=== PATIENT | female | born 1960 | race African-American/Black ===

== ENCOUNTER 2016-10-28 08:28 | Day surgery (SDC) | payer OTHER ==
[2016-10-28] VITALS (7 sets, daily range): BP systolic 122–141; BP diastolic 71–97; PULSE 61–90; RESP 18; TEMP 97.8–98.3; O2SAT 97–98
[~2016-10-28] VITALS: Ht 154.9 cm; Wt 109.0 kg
[2016-10-28] MEDS ORDERED: SODIUM CHLORIDE 2 ML FLUSH PRN IV FLUSH (09:00)
[2016-10-28] MEDS ORDERED: SODIUM CHLORIDE 2 ML FLUSH BID IV FLUSH SCH (09:00)
[2016-10-28] MEDS ORDERED: SODIUM CHLOR 0.9% 1000 ML IV SCH (09:00)
[2016-10-28] MEDS ORDERED: LEVO75TA3 PO (09:05)
[2016-10-28] MEDS ORDERED: HYDR12.57 PO (09:05)
[2016-10-28] MEDS ORDERED: OMEP40CA2 PO (09:05)
[2016-10-28] MEDS ORDERED: LOSA100T PO (09:05)
[2016-10-28] MEDS ORDERED: FLUT1INH INH (09:05)
[2016-10-28] MEDS ORDERED: HYDR25TA5 PO (09:05)
[2016-10-28] MEDS ORDERED: fentaNYL CITRATE 250 MCG/5 ML AMP ONE (10:56)
[2016-10-28] MEDS ORDERED: MIDAZOLAM HCL 2 MG/2 ML VIAL ONE (10:59)
[2016-10-28] MEDS ORDERED: LIDOCAINE 1%/EPINEPHrine 1:100,000 SOLN 20 ML VIAL ONE (11:07)
--- NOTE | 2016-10-28 11:50 | PD.RAD ---
Post CT Procedure Prog Note Pre Procedure Diagnosis: (1) Mediastinal mass Post Procedure Diagnosis: (1) Mediastinal mass Procedure Date: Oct 28, 2016 Supervising Radiologist: Erickson Roth Estimated blood loss: minimal Anesthesia: Conscious Sedation Plan of Activity Patient to Unit: [facility] Patient Condition: Good See PACS Report for procedural detail/treatment Biopsy Imaging Guidance: CT Biopsy Procedure: Mediastinal Mass Site: anterior mediastinal mass. suspected thyroid origin. want to evaluate for lymphoma and thyroid cancer. Specimen: Core Biopsy Additional Detail: transsternal biopsy performed. Plan to [facility] for monitoring then discharge home. Erickson Roth MD Oct 28, 2016 11:50
--- NOTE | 2016-10-28 15:00 | RADRPT ---
EXAM DATE/TIME: 10/28/2016 11:20 [facility] COMPARISON: No previous studies available for comparison. Outside MRI and CT were reviewed. INDICATIONS : Substernal/anterior mediastinal mass SEDATION TIME: 20 minutes BIOPSY SITE: Left sub sternal MEDICATION(S): 1.) 2 mg midazolam (Versed) IV 2.) 100 mcg fentanyl (Sublimaze) IV DEVICE(S): 1.) 18 gauge Temno core biopsy needle MEDICAL HISTORY : None. SURGICAL HISTORY : None. ENCOUNTER: Initial ACUITY: 1 day PAIN SCORE: 0/10 LOCATION: Left substernal A total of six core specimen(s) were obtained and sent to the laboratory for pathologic evaluation. PROCEDURE: 1. CT guided substernal biopsy. 2. Conscious sedation with continuous EKG and oximetry monitoring. 3. EKG and oximetry remained stable throughout the procedure. Prior to the procedure informed consent was obtained. The outside CT and MRI were reviewed. Based on the location and the location of the internal mammary arteries, the safest approach was a trans-anthony al approach. Using automated exposure control and adjustment of the mA and/or kV according to patient size, radiat ion dose was kept as low as reasonably achievable to obtain optimal diagnostic quality images. DICOM format image data is available electronically for review and comparison. The site was prepped in a sterile fashion. Full sterile technique was used, including cap, mask, cindy rile gloves and gown and a large sterile sheet. Hand hygiene and 2% chlorhexidine and/or betadine/al cohol prep was utilized per protocol for cutaneous antisepsis. The skin and subcutaneous tissues wer e infiltrated with local anesthetic solution. With CT guidance the superior mediastinal mass was localized. A trans-sternal approach was utilized. Coaxial needle was drilled through the sternum and through this coaxial needle core samples were obta ined. Biopsy was performed using the prescribed needle as above. Adequate hemostasis was obtained wi th compression at the puncture site. Follow-up CT scan reveals no hemorrhage or acute abnormality. The patient tolerated the procedure well and there were no complications. The patient was returned to the Radiology Outpatient Unit in stable condition. CONCLUSION: Uncomplicated CT guided biopsy of the superior mediastinal mass. Erickson Roth MD on October 28, 2016 at 14:57 Board Certified Radiologist. This report was verified electronically.
== END 2016-10-28 15:00 | disposition home or self-care (01) ==
LOC: HRAD 08:28 → HRIP 08:32 → HRAD 15:00
PROVIDERS: ATTEND Surgery
DX: E04.9 Nontoxic goiter, unspecified (principal); R22.2 Localized swelling, mass and lump, trunk
CPT/HCPCS: 32405; 77012; 88307; C1830; J2250; J3010; 88305

== ENCOUNTER 2017-08-01 05:46 | Observation (INO) | payer OTHER ==
[~2017-08-01] VITALS: Ht 154.9 cm; Wt 103.3 kg
[~2017-08-01 05:46] MED LIST: FLUT1INH INH; HYDR12.57 PO; LEVO75TA3 PO; LOSA100T PO; OMEP40CA2 PO
[2017-08-01] MEDS ORDERED: LACTATED RINGER'S 1000 ML IV PRN (06:30)
[2017-08-01] MEDS ORDERED: SODIUM CHLORID 0.9% 500 ML IV PRN (06:30)
[2017-08-01] MEDS ORDERED: POVIDONE IODINE 5% (ANTISEPSIS KIT) 4 APPLICATIONS EACH NARE PRN (06:30)
[2017-08-01] MEDS ORDERED: METOPROLOL TARTRATE 25 MG TAB PO PRN (06:30)
[2017-08-01] MEDS ORDERED: ACETAMINOPHEN 1000 MG/100 ML 100 ML IV SCH (06:30)
[2017-08-01] MEDS ORDERED: CHLORHEXIDINE GLUCONATE 2 % 1 PACK (2 CLOTHS) TOPICAL PRN (06:30)
[2017-08-01] MEDS ORDERED: INSULIN HUMAN REGULAR 1,000 UNITS/10 ML VIAL SQ PRN (06:30)
[2017-08-01] MEDS ORDERED: FAMOTIDINE 20 MG/2 ML VIAL ONE (07:11)
[2017-08-01] MEDS ORDERED: MIDAZOLAM HCL 2 MG/2 ML VIAL ONE (10:13)
--- NOTE | 2017-08-01 10:19 | PD.OP ---
cc: Joe Griffin MD Operative Report Date of Surgery: August 01, 2017 Preoperative Diagnosis: Right thyroid goiter Postoperative Diagnosis: Right thyroid goiter Procedure: Right thyroid lobectomy Anesthesia: General endotracheal Surgeon: Joe Griffin Substation Operator Transforming(s): Gus Mckeon MD Operation and Findings: Operative findings: The patient was found to have an extremely enlarged, substernal goiter involving the entire right lobe of the thyroid. There was a fair amount of edema around the thyroid but no other abnormalities were noted. Operative procedure: Patient was brought to the operating room and after satisfactory general endotracheal anesthesia was obtained, the neck was hyperextended then prepped and draped in the usual sterile fashion. A standard collar incision was made carried down sharply through the subcutaneous tissue with cautery being used for hemostasis. Incision was deepened to the platysma which was then divided with cautery. The incision was further deepened to the fascia of the anterior neck muscles and upper and lower flaps were then developed also with a cautery. Thyroid retractor was then placed in the midline of the neck open with the cautery. Once the right thyroid lobe is been located properly he was seen to be grossly enlarged and quite substernal in this location. Dissection was carried out superiorly first and the superior thyroid vessels were identified isolated and then divided with harmonic scalpel at the level of the thyroid. The remainder of the superior lobe was dissected free superiorly and then rotated medially to take down the posterior attachments with care being taken to preserve the surrounding tissues. The lobe was large enough where the posterior aspect of the lobe rested on the spinal column. Dissection was then undertaken for the middle thyroid vessels. The patient was noted to have extra vessels in this area and dissection was carried out with the vessels being divided at the level of the thyroid. Using Susana clamps the thyroid was rotated medially and then dissection was carried inferiorly and the lobe was gently brought into the operative field by retracting it medially and superiorly. The inferior thyroid vessels were identified and divided at the level of the thyroid. The entire gland was then rotated medially as the attachments were carefully dissected free bluntly. The recurrent nerve was identified by using the nerve monitor and was preserved throughout the entire dissection of the gland. Once it had been dissected off the trachea the very small remaining isthmus was dissected free as well and the specimen was sent for permanent pathology. Hemostasis was checked for and found to be satisfactory with no bleeding or significant bruising. Surgicel powder was used to fill the space where the thyroid had been dissected free.Hemostasis was again checked for and found to be satisfactory. The midline of the neck was then closed with a running 3-0 Vicryl suture. The area was checked for hemostasis and was seen to be satisfactory. The platysma layer and subcutaneous tissue was closed with interrupted 3-0 Vicryl sutures and the skin then closed with a running 4-0 PDS subcuticular stitch. Steri-Strips were applied the patient was then awakened and taken from the operating room, in stable condition, having tolerated the procedure without problem. Estimated blood loss was less than 20 mL's. The instrument, sponge, and needle counts were reported as being correct 2 at the end of the procedure. Joe Griffin MD August 01, 2017 10:19
[2017-08-01] MEDS ORDERED: KETOROLAC TROMETHAMINE 30 MG/ML (IVP) VIAL ONE (10:29)
[2017-08-01] MEDS ORDERED: *RESP: ALBUTEROL 2.5 MG/3 ML NEB (PRN) PERIprocedural Use ONLY NEB ONE (10:47)
[2017-08-01] MEDS ORDERED: oxyCODONE/ACETAMINOPHEN 5 MG/325 MG TAB PO PRN (11:00)
[2017-08-01] MEDS ORDERED: KETOROLAC TROMETHAMINE 30 MG/ML (IVP) VIAL IV PUSH ONE (11:00)
[2017-08-01] MEDS ORDERED: ONDANSETRON HCL 4 MG/2 ML VIAL IV PUSH PRN (11:00)
[2017-08-01] MEDS ORDERED: MORPHINE SULFATE 4 MG/ML INJ IV PUSH PRN ×2 (11:00)
[2017-08-01] MEDS ORDERED: SODIUM CHLORIDE 0.9% FLUSH 10 ML FLUSH IV FLUSH PRN (11:00)
[2017-08-01] MEDS ORDERED: ONDANSETRON ODT 4 MG TAB PO PRN (11:15)
[2017-08-01] MEDS ORDERED: DO NOT ADM ANY ANTICOAGULANT DRUGS PRN (11:15)
[2017-08-01] MEDS ORDERED: LIDOCAINE HCL 1% PF 5 ML SYRINGE OTHER ONE (12:00)
[2017-08-01] MEDS ORDERED: ONDANSETRON HCL 4 MG/2 ML VIAL IV ONE (12:00)
[2017-08-01] MEDS ORDERED: ROCURONIUM INJ 50 MG/5 ML SYRINGE IV PUSH ONE (12:00)
[2017-08-01] MEDS ORDERED: PROPOFOL 200 MG/20 ML AMP IV ONE (12:00)
[2017-08-01] MEDS ORDERED: DEXAMETHASONE SOD PHOS 4 MG/ML VIAL IV ONE (12:00)
[2017-08-01] MEDS ORDERED: PHENYLEPH/NS 1000 MCG/10 ML SYR IV ONE (12:00)
[2017-08-01] MEDS ORDERED: SODIUM CHLORIDE 0.9% 10 ML VIAL IV FLUSH ONE (12:00)
[2017-08-01] MEDS: oxyCODONE/ACETAMINOPHEN 5 MG/325 MG TAB PO PRN ×2 (12:10→20:16)
[2017-08-01 16:00] VITALS: BP 99/66; PULSE 80; RESP 18; TEMP 97.7; O2SAT 93
[2017-08-01 20:00] VITALS: BP 108/67; PULSE 80; RESP 17; TEMP 97.5; O2SAT 95
[2017-08-01] MEDS ORDERED: METOCLOPRAMIDE HCL 10 MG/2 ML VIAL IV PRN (23:00)
[2017-08-02] VITALS: BP 105/59; PULSE 75; RESP 17; TEMP 97.5; O2SAT 95
[2017-08-02 08:00] VITALS: BP 117/63; PULSE 83; RESP 18; TEMP 97.4; O2SAT 94
[2017-08-02 09:13] VITALS: O2SAT 95
[2017-08-02] MEDS: oxyCODONE/ACETAMINOPHEN 5 MG/325 MG TAB PO PRN (10:05)
== END 2017-08-02 11:26 | disposition home or self-care (01) ==
LOC: HSDC 05:46 → N07A 12:45
PROVIDERS: ADMIT Surgery; ATTEND Surgery
DX: E04.1 Nontoxic single thyroid nodule (principal); I10 Essential (primary) hypertension; J45.909 Unspecified asthma, uncomplicated; K21.9 Gastro-esophageal reflux disease without esophagitis; E66.9 Obesity, unspecified
CPT/HCPCS: 00320; 60220; 82310; 88307; 94664; G0378; J0131; J1100; J2250; J2370; J2405; J3010; J7120; J7613; J1885